=== PATIENT | male | born 1945 | race Caucasian/White ===

== ENCOUNTER 2016-03-10 16:41 | Outpatient (CLI) | payer MEDICARE, BC | END 2016-03-10 16:42 | disposition home or self-care (01) | DX: R10.84 Generalized abdominal pain (principal); M79.1 Myalgia; R50.9 Fever, unspecified ==

== ENCOUNTER 2016-03-11 12:46 | Outpatient (CLI) | payer MEDICARE, BC ==
[2016-03-11] MEDS ORDERED: IOPAMIDOL-300 100 ML VIAL IVP ONE (14:06)
[2016-03-11] MEDS ORDERED: IOPAMIDOL-300 50 ML VIAL PO ONE (14:06)
== END 2016-03-11 12:47 | disposition home or self-care (01) ==
DX: K76.0 Fatty (change of) liver, not elsewhere classified (principal); K57.30 Diverticulosis of large intestine without perforation or abscess without bleeding
CPT/HCPCS: 74177; 80053; 83690; 85025; 85651; 86140; 87275; 87276; Q9967

== ENCOUNTER 2017-07-23 14:26 | Outpatient (CLI) | payer MEDICARE, BC ==
--- NOTE | 2017-07-23 17:34 | XRAY Report ---
TWO VIEW CHEST: 07/23/2017 CLINICAL INDICATION: Chest pain. FINDINGS: Frontal and lateral views of the chest demonstrate a normal cardiac silhouette. The lungs are clear. No effusion or pneumothorax is present. IMPRESSION: NORMAL CHEST. TD: 07/23/2017 14:47
== END 2017-07-23 14:27 | disposition home or self-care (01) ==
LOC: DI.S 14:26
PROVIDERS: ATTEND Nurse Practitioner Family
DX: R07.9 Chest pain, unspecified (principal); R07.1 Chest pain on breathing
CPT/HCPCS: 71046

== ENCOUNTER 2018-07-01 11:44 | Outpatient (CLI) | payer MEDICARE, BC ==
[2018-07-01] MEDS ORDERED: IOVERSOL 320 100 ML VIAL IVP ONE ×2 (12:06→12:22)
--- NOTE | 2018-07-01 14:29 | CT Report ---
Reason: PELVIC AND PERINEAL PAIN Procedure Date: 07/01/2018 Accession Number: [id number] / [id number] Procedure: CT - IVP CPT Code: FULL RESULT: EXAM: CT ABDOMEN AND PELVIS WITHOUT AND WITH CONTRAST (CT IVP) EXAM DATE: 07/01/2018 12:28 PM. CLINICAL HISTORY: Pelvic and perineal pain. History of bladder cancer. COMPARISONS: ABDOMEN/PELVIS W/WO 03/11/2016 2:05 PM. TECHNIQUE: Routine helical imaging was performed through the kidneys, ureters and bladder in the precontrast, postcontrast and delayed phase. IV Contrast: opti 320 100 ml. Reconstructions: Coronal and sagittal. In accordance with CT protocol optimization, one or more of the following dose reduction techniques were utilized for this exam: automated exposure control, adjustment of mA and/or KV based on patient size, or use of iterative reconstructive technique. FINDINGS: Lung Bases: Unremarkable. Liver: Normal. No masses. Gallbladder/Bile Ducts: Unremarkable. Spleen: Normal. Pancreas: Normal. Adrenal Glands: Normal. Kidneys/Bladder: Right Kidney/Ureter: Renal hypodensity which is too small to characterize. No calculi, obstruction or mass. The right proximal ureter is normal, right mid ureter is not well opacified, right distal ureter is normal to the level just proximal to the ureterovesicular junction, UVJ evaluation limited by streak artifact with no abnormality seen. Left Kidney/Ureter: No renal or ureteral stones. No obstruction. No mass in the proximal collecting system, proximal and mid ureter are not well seen. Evaluation of the ureterovesicular junction limited by streak artifact. Bladder: Evaluation of the bladder is limited by streak artifact. No wall thickening or mass. Peritoneal Cavity/Bowel: Normal. No free fluid, free air or adenopathy. No masses or acute inflammatory process. Pelvic Organs: Visualization of the pelvis is limited by marked streak artifact from the left total hip arthroplasty. No pelvic lymphadenopathy is seen. Vasculature: No aneurysms or other significant abnormality. Bones: No aggressive osseous lesions are detected. Other: None. IMPRESSION: No urinary tract mass detected with limited evaluation of the pelvis due to streak artifact. [facility]
== END 2018-07-01 11:45 | disposition home or self-care (01) ==
LOC: DI 11:44
PROVIDERS: ATTEND Nurse Practitioner Family
DX: R10.2 Pelvic and perineal pain (principal)
CPT/HCPCS: 74178; Q9967

== ENCOUNTER 2020-03-18 10:00 | Outpatient (CLI) | payer MEDICARE, BC ==
--- NOTE | 2020-03-18 15:24 | XRAY Report ---
PROCEDURE: Chest 2 View X-Ray INDICATIONS: OTHER CHEST PAIN TECHNIQUE: 2 view(s) of the chest. COMPARISON: None. FINDINGS: Surgical changes and devices: None. Lungs and pleura: No pleural effusions or pneumothorax. Lungs are clear. Mediastinum: Mediastinal contours are normal. Heart size is normal. Bones and chest wall: No suspicious bony abnormalities. Soft tissues appear unremarkable. IMPRESSION: No acute pulmonary process. Reviewed by: Becka Driver MD on 03/18/2020 3:23 PM [facility] Approved by: Becka Driver MD on 03/18/2020 3:23 PM [facility] Station ID: [id number]
== END 2020-03-18 10:01 | disposition home or self-care (01) ==
LOC: DI.S 10:00
PROVIDERS: ATTEND Internal Medicine
DX: R07.89 Other chest pain (principal)

== ENCOUNTER 2020-04-30 07:00 | Outpatient (CLI) | payer MEDICARE, BC ==
[2020-04-30] MEDS ORDERED: IOVERSOL 320 100 ML VIAL IVP ONE (11:23)
[2020-04-30] MEDS ORDERED: IOPAMIDOL-300 50 ML VIAL ONE (11:23)
--- NOTE | 2020-04-30 14:13 | CT Report ---
PROCEDURE: Abdomen/Pelvis W INDICATIONS: FEVER WITH CHILLS CONTRAST: IV CONTRAST: Optiray 320 ml: 100 PO CONTRAST: Isovue 300 ml50 TECHNIQUE: After the administration of IV and oral contrast, 5 mm thick sections acquired from the diaphragms to the symphysis. 5 mm thick coronal and sagittal reformats were acquired. For radiation dose reducti on, the following was used: automated exposure control, adjustment of mA and/or kV according to sasha ent size. COMPARISON: None. FINDINGS: Image quality: Excellent. ABDOMEN: Lung bases: Lung bases are clear. Heart size is normal. Solid organs: Liver and spleen are normal in size and enhancement. Gallbladder is within normal campos its Biliary system is non dilated. Pancreas enhances normally. No adrenal nodules. Kidneys demons trate normal size and enhancement, without hydronephrosis. Peritoneum and bowel: Bowel loops demonstrate normal wall thickness and caliber. Normal appendix. N o free fluid or air. Nodes and vessels: No retroperitoneal or mesenteric adenopathy by size criteria. Aorta and inferior vena cava are normal in size. Miscellaneous: No ventral hernias. PELVIS: Genitourinary: Bladder wall thickness is normal. Miscellaneous: No inguinal hernias or adenopathy. Bones: No suspicious bony lesions. Left hip arthroplasty has been performed. Moderate right hip join t periarticular osteophyte formation. No vertebral body compression fractures. IMPRESSION: 1. No acute process. 2. Normal appendix. Reviewed by: Robert Cartwright MD on 04/30/2020 2:12 PM PST Approved by: Robert Cartwright MD on 04/30/2020 2:12 PM PST Station ID: [id number]
== END 2020-04-30 23:59 | disposition home or self-care (01) ==
LOC: DI 07:00
PROVIDERS: ATTEND Internal Medicine
DX: R50.9 Fever, unspecified (principal); I51.7 Cardiomegaly
CPT/HCPCS: 74177; 93306; Q9967

== ENCOUNTER 2020-04-30 10:01 | Outpatient (CLI) | payer MEDICARE, BC ==
[2020-04-30] MEDS ORDERED: IOPAMIDOL-300 50 ML VIAL PO ONE (14:54)
[2020-04-30] MEDS ORDERED: IOVERSOL 320 100 ML VIAL IVP ONE (14:54)
== END 2020-04-30 10:02 | disposition home or self-care (01) ==
LOC: DI 10:01
PROVIDERS: ATTEND Internal Medicine
DX: R50.9 Fever, unspecified (principal); I51.7 Cardiomegaly
CPT/HCPCS: 93306

== ENCOUNTER 2023-04-19 08:19 | Outpatient (CLI) | payer MEDICARE, BC ==
--- NOTE | 2023-04-19 14:06 | Ultrasound Report ---
PROCEDURE: Pelvic Limited INDICATIONS: INGUINAL PAIN TECHNIQUE: Real-time transabdominal scanning was performed of the inguinal region, with image documentation. COMPARISON: None. FINDINGS: There appears to be a recurrent right inguinal hernia containing fat. The neck measures 10 x 6 mm. IMPRESSION: Suspected recurrent right inguinal hernia containing fat. Reviewed by: Madhu Burdick MD on 04/19/2023 2:05 PM PST Approved by: Madhu Burdick MD on 04/19/2023 2:05 PM PST Station ID: [id number]
== END 2023-04-19 08:20 | disposition home or self-care (01) ==
LOC: DI 08:19
PROVIDERS: ATTEND Registered Nurse
DX: R10.2 Pelvic and perineal pain (principal)